=== PATIENT | female | born 1970 | race Caucasian/White ===

== ENCOUNTER 2017-06-10 13:21 | Emergency (ER) | payer OTHER ==
[~2017-06-10] VITALS: Ht 157.5 cm; Wt 75.0 kg
[2017-06-10 13:25] VITALS: BP 212/111; PULSE 70; RESP 16; TEMP 98.1; O2SAT 99
[2017-06-10] MEDS ORDERED: CEPH-460 PO (13:42)
[2017-06-10] MEDS ORDERED: DOXY100C PO (13:42)
[2017-06-10] MEDS ORDERED: PERC5TAB12 PO (13:43)
--- NOTE | 2017-06-10 13:43 | PD ---
HPI Chief Complaint: Foreign Body Time Seen by Provider: 13:30 Travel History International Travel<30 days: No Contact w/Intl Traveler<30days: No Traveled to known affect area: No History of Present Illness HPI 46-year-old female complains of pain in the left distal forearm after a stingray envenomation approximately 2-1/2 hours ago. Warm water helps. [place] hurts. Associated symptoms include erythema and swelling. Onset sudden. Timing constant. PFSH Past Medical History ?: Not Social History Tobacco Use: No Substance Use: No Allergies-Medications (Allergen,Severity, Reaction): Coded Allergies: No Known Allergies (Unverified Adverse Reaction, Unknown, 06/10/17) Reported Meds & Prescriptions Reported Meds & Active Scripts Active Percocet (Oxycodone-Acetaminophen) 5-325 mg Tab 2 Tab PO Q6H PRN Doxycycline Hyclate 100 Mg Cap 100 Mg PO BID 10 Days Keflex (Cephalexin) 500 Mg Cap 500 Mg PO Q8H Review of Systems General / Constitutional: No: Fever HENT: No: Headaches Musculoskeletal: Positive: Pain Skin: Positive Rash Physical Exam Narrative GENERAL: 46-year-old female minimal distress secondary to pain SKIN: Warm and dry. HEAD: Normocephalic. EYES: No scleral icterus. No injection or drainage. NECK: Supple, trachea midline. No JVD or lymphadenopathy. CARDIOVASCULAR: Regular rate and rhythm without murmurs, gallops, or rubs. RESPIRATORY: Breath sounds equal bilaterally. No accessory muscle use. GASTROINTESTINAL: Abdomen soft, non-tender, nondistended. MUSCULOSKELETAL: No cyanosis, or edema. Erythema tenderness and swelling of the distal left forearm with about a 2 mm area of open skin consistent with stingray envenomation. Data Data Last Documented VS Vital Signs Date Time Temp Pulse Resp B/P (MAP) Pulse Ox O2 Delivery O2 Flow Rate FiO2 06/10/17 13:25 98.1 70 16 212/111 (144) 99 hypertension observed we'll repeat Orders Orders Oxycodone-Acetamin 5-325 Mg (Percocet (06/10/17 13:45) Tetanus/Diphtheria Tox Adult (Tetanus/Di (06/10/17 14:00) MDM Medical Decision Making Medical Screen Exam Complete: Yes Emergency Medical Condition: Yes Differential Diagnosis marine envenomation, cellulitis, urticaria Narrative Course Pain control Keflex and doxycycline Return precautions discussed Tetanus administered Diagnosis Primary Impression: Toxic effect of contact with stingray Qualified Codes: T63.511A - Toxic effect of contact with stingray, accidental (unintentional), initial encounter Referrals: Primary Care Physician 2 days Additional Instructions: You have a choice when it comes to health care, and we are glad that you chose [facility]. Hopefully, we have met your expectations on today's visit. You are welcome to return to [facility] at any time, as we are committed to meeting the health care needs of our community. Med/Other Pt SpecificInfo: Prescription(s) given Scripts Oxycodone-Acetaminophen (Percocet) 5-325 mg Tab 2 TAB PO Q6H Y for PAIN SCALE 6 TO 10, #20 TAB 0 Refills Prov: Yuri Callejas MD 06/10/17 Doxycycline Hyclate (Doxycycline Hyclate) 100 Mg Cap 100 MG PO BID for Infection for 10 Days, #20 CAP 0 Refills Prov: Yuri Callejas MD 06/10/17 Cephalexin (Keflex) 500 Mg Cap 500 MG PO Q8H for Infection, #30 CAP 0 Refills Prov: Yuri Callejas MD 06/10/17 Disposition: 01 DISCHARGE HOME Condition: Stable Yuri Callejas MD Jun 10, 2017 13:43
[2017-06-10] MEDS ORDERED: oxyCODONE/ACETAMINOPHEN 5 MG/325 MG TAB PO ONE (13:45)
[2017-06-10] MEDS ORDERED: TETANUS/DIPHTHERIA TOXOID ADULT 0.5 ML VIAL IM ONE (14:00)
== END 2017-06-10 14:35 | disposition home or self-care (01) ==
LOC: PHED 13:21
DX: T63.511A Toxic effect of contact with stingray, accidental (unintentional), initial encounter (principal); Z23 Encounter for immunization
CPT/HCPCS: 90471; 90714; 96372